=== PATIENT | female | born 1985 | race American Indian/Alaskan Native ===

== ENCOUNTER 2017-10-14 08:48 | Day surgery (SDC) | payer OTHER ==
[2012-10-19 13:07] VITALS: BMI 24.4
[2017-10-14] MEDS ORDERED: Propofol 10 mg/ml Inj (20 ML) ONE (10:50)
[2017-10-14 12:23] VITALS: TEMP 97
[2017-10-14 12:30] VITALS: BP 148/84; PULSE 59; RESP 19; O2SAT 100
== END 2017-10-14 12:30 | disposition home or self-care (01) ==
LOC: C.ENDO 08:48
PROVIDERS: ATTEND Internal Medicine Gastroenterology
DX: K21.9 Gastro-esophageal reflux disease without esophagitis (principal); K29.70 Gastritis, unspecified, without bleeding
CPT/HCPCS: 43239; 84703; 88305; 88312; 88342; J2704